=== PATIENT | female | born 2000 | race Caucasian/White ===

== ENCOUNTER 2021-06-02 00:13 | Inpatient (IN) | payer OTHER, SELFPAY ==
[2021-06-02] VITALS (7 sets, daily range): BP systolic 92–130; BP diastolic 47–76; PULSE 55–120; RESP 11–18; TEMP 36.9–37.3; O2SAT 96–100; BMI 25.7
--- NOTE | 2021-06-02 | ECG_ITS ---
Test Reason : MED CLEARANCE Blood Pressure : / mmHG Vent. Rate : 054 BPM Atrial Rate : 054 BPM P-R Int : 210 ms QRS Dur : 084 ms QT Int : 406 ms P-R-T Axes : 008 070 044 degrees QTc Int : 385 ms Sinus bradycardia with sinus arrhythmia with 1st degree A-V block Otherwise normal ECG When compared with ECG of 02-JUN-2021 04:27, No significant change was found DC interval has increased Heart rate has decreased Referred By: Shy Nettles Electronically Signed By:ANAHI HAWKINS
--- NOTE | 2021-06-02 00:38 | ED_ITS ---
HPI - Overdose General Chief Complaint: Overdose <Olman Malhotra MD - Last Filed: 06/02/21 07:16> Stated Complaint: SUICIDE ATTEMPT, OD AND WRIST LAC <Olman Malhotra MD - Last Filed: 06/02/21 07:16> Time Seen by Provider: 06/02/21 00:25 <Olman Malhotra MD - Last Filed: 06/02/21 07:16> Source: patient and EMS <Olman Malhotra MD - Last Filed: 06/02/21 07:16> Mode of arrival: EMS <Olman Malhotra MD - Last Filed: 06/02/21 07:16> Limitations: no limitations <Olman Malhotra MD - Last Filed: 06/02/21 07:16> History of Present Illness HPI Narrative: 20-year-old female who was brought to emergency department for intentional overdose of Seroquel. The information came from the ED nurse who obtained the following information. The patient's mother recently moved out and is living with a boyfriend. The patient has been living alone and she has found it very difficult. She states that she has been struggling with depression is had ther apy in the past that has not helped. The patient was witnessed taking approximately 20 pills of Seroquel 25 mg each. The person who witness this overdose made the patient vomit but did not notice any pill fragments. The overdose occurred [facility] The patient did drink alcohol this evening. She states she drank vodka but does not know how much she drank. She denied taking any illicit drugs. The patient told me that she does not cut herself and is not a cutter but she had a very stressful day today and she took a razor blade and made multiple superficial lacerations to her left forearm (15 in total). <Olman Malhotra MD - Last Filed: 06/02/21 07:16> Related Data Home Medications: Home Medications Medication Instructions Recorded Confirmed No Known Home Meds 06/02/21 06/02/21 <Olman Malhotra MD - Last Filed: 06/02/21 07:16> Allergies/Adverse Reactions: Allergies Allergy/AdvReac Type Severity Reaction Status Date / Time Penicillins [PCN] Allergy Unknown Verified 06/02/21 00:23 <Olman Malhotra MD - Last Filed: 06/02/21 07:16> Review of Systems Review of Systems: Yes all other systems are reviewed and are negative <Olman Malhotra MD - Last Filed: 06/02/21 07:16> [facility] Past Medical History [facility] Narrative: Past medical history: Anemia. Past surgical history: None. Social history: The patient occasionally smokes cigarettes. The patient occasionally drinks alcohol, she did drink vodka this evening. The patient denies drug use. <Olman Malhotra MD - Last Filed: 06/02/21 07:16> Social History Social History: Social History Alcohol intake: current Patient Tobacco Use Status: Never used Tobacco Use of substances other than those prescribed or required for medical reasons: No Advance Directives: No Advance Directives Information Provided: No <Olman Malhotra MD - Last Filed: 06/02/21 07:16> Physical Exam Vital Signs: Vital Signs: Last Vital Signs Temp 98.0 F 06/03/21 07:42 Pulse 63 06/03/21 07:42 Resp 15 06/03/21 07:42 BP 106/65 06/03/21 07:42 Pulse Ox 99 06/03/21 07:42 Body Mass Index 25.7 <Olman Malhotra MD - Last Filed: 06/02/21 07:16> Vital Signs: Last Vital Signs Temp 98.0 F 06/03/21 07:42 Pulse 63 06/03/21 07:42 Resp 15 06/03/21 07:42 BP 106/65 06/03/21 07:42 Pulse Ox 99 06/03/21 07:42 Body Mass Index 25.7 <ELENA Ovalles - Last Filed: 06/03/21 08:32> Const: Other: Sad appearing female patient, answers questions appropriately but in a very soft voice, does not appear to be in any distress. <Olman Malhotra MD - Last Filed: 06/02/21 07:16> HENMT: Head: Yes normal to inspection, Yes normocephalic and Yes atraumatic <MD Edenilson Menezes Last Filed: 06/02/21 07:16> Ears: external ears normal <MD Edenilson Menezes Last Filed: 06/02/21 07:16> General nose exam: Normal external nose present <MD Edenilson Menezes Last Filed: 06/02/21 07:16> Face and sinus: Yes normal facial exam <MD Edenilson Menezes Last Filed: 06/02/21 07:16> Mouth: Normal oral and palatal mucosa present <MD Edenilson Menezes Last Filed: 06/02/21 07:16> Throat: Yes posterior oropharynx normal <MD Edenilson Menezes Last Filed: 06/02/21 07:16> Eyes: General: appearance normal, both eyes and all related structures <MD Edenilson Menezes Last Filed: 06/02/21 07:16> Pupils: Equal, round and reactive pupils present <MD Edenilson Menezes Last Filed: 06/02/21 07:16> Neck: Neck: Yes normal visual inspection, Yes no lymphadenopathy, Yes trachea midline and Yes supple <MD Edenilson Menezes Last Filed: 06/02/21 07:16> Chest: Chest palpation & inspection: normal inspection of the chest and normal palpation of entire chest wall <MD Edenilson Menezes Last Filed: 06/02/21 07:16> Resp: Effort & Inspection: normal respiratory effort and able to speak in complete sentences <MD Edenilson Menezes Last Filed: 06/02/21 07:16> Auscultation: clear to auscultation bilaterally <MD Edenilson Menezes Last Filed: 06/02/21 07:16> Cardio: Rate: regular rate <MD Edenilson Menezes Last Filed: 06/02/21 07:16> Rhythm: regular rhythm <MD Edenilson Menezes Last Filed: 06/02/21 07:16> Heart sounds: S1 normal heart sound present, S2 normal heart sound present and no murmurs <MD Edenilson Menezes Last Filed: 06/02/21 07:16> GI: Inspection: Yes normal to inspection <Olman Malhotra MD - Last Filed: 06/02/21 07:16> Palpation (GI): Soft to palpation, nontender and no guarding <Olman Malhotra MD - Last Filed: 06/02/21 07:16> Auscultation: normal bowel sounds <Olman Malhotra MD - Last Filed: 06/02/21 07:16> : General: Yes no CVA tenderness <Olman Malhotra MD - Last Filed: 06/02/21 07:16> Back/Spine/Pelvis: Back: no CVA tenderness <Olman Malhotra MD - Last Filed: 06/02/21 07:16> Skin: General skin exam: no rashes or lesions noted <Olman Malhotra MD - Last Filed: 06/02/21 07:16> Neuro: Cranial nerves: Yes CN's II-XII intact bilaterally and Yes Equal, round and reactive pupils present <Olman Malhotra MD - Last Filed: 06/02/21 07:16> Cognition (Neuro): normal cognition <Olman Malhotra MD - Last Filed: 06/02/21 07:16> Motor exam (neuro): 5/5 motor strength present throughout <Olman Malhotra MD - Last Filed: 06/02/21 07:16> Extrem: General: Yes normal to inspection <Olman Malhotra MD - Last Filed: 06/02/21 07:16> Psych: Appearance: grossly normal <Olman Malhotra MD - Last Filed: 06/02/21 07:16> Speech and movement: Normal speech and movement present <Olman Malhotra MD - Last Filed: 06/02/21 07:16> Affect: Sad affect present <Olman Malhotra MD - Last Filed: 06/02/21 07:16> Attitude: cooperative <Olman Malhotra MD - Last Filed: 06/02/21 07:16> Course Course Course Narrative: 20-year-old female who presents emergency department for evaluation of intentional overdose of Seroquel 25 mg tablets, estimated 20 pills 1 hour prior to coming to emergency department. The patient took these in front of a friend who then forced her to vomit but there was no pill fragments. Patient also used a razor and made 15 superficial lacerations to her left forearm. Vital signs were stable. Physical examination was unremarkable except for the superficial lacerations on her left forearm which do not require suture repair. The lacerations were cleaned by nursing staff and bacitracin and a sterile dressing was applied to the wound. The patient was placed on a otr company driver. Labo ratory evaluation and EKG will be obtained. The patient will need to be monitored for at least 6 hours and observed for cardiac arrhythmias, hypotension, seizure activity. 0713: The patient's laboratory evaluation was unremarkable except for low elevated lactate of 3.0. She was treated with normal saline IV x3. Repeat lactic acid did improve. The patient's repeat EKG 4 hours after the 1st EKG revealed no prolongation of her QTC interval. The patient was kept on a cardiac and O2 saturation monitor for 6 hours. She had no arrhythmias or episodes apnea. Patient's blood pressure was low overnight while she was sleeping however I think that this was probably normal for her not caused by Seroquel. The patient is medically cleared and she will be transferred to the psychiatric pod. The patient will need crisis evaluation to determine if she needs to be admitted or if she can be discharged home. Patient will be placed in physician observation. 0713: Physician observation started at 0713. Patient placed in physician observation because the patient needed more time to be evaluated for the need for psych admission. At the time observation was started the patient's vitals were stable, patient is alert and oriented, Neuro: nonfocal, CV RRR, Lungs clear. <Olman Malhotra MD - Last Filed: 06/02/21 07:16> Reevaluation(s) Reevaluation #1: Physician observation continue. Patient vital signs are stable. Patient is not in any distress. Patient's Section 12 and is a bed search. <ELENA Ovalles - Last Filed: 06/03/21 08:32> Time: 08:31 <ELENA Ovalles - Last Filed: 06/03/21 08:32> MDM - Overdose Lab Data Result diagrams: : 06/02/21 00:34 06/02/21 00:34 <Olman Malhotra MD - Last Filed: 06/02/21 07:16> Labs: Lab Results 06/02/21 06/02/21 06/02/21 Range/Units 00:29 00:34 00:34 WBC 6.6 (4.8-10.8) X10*3/uL RBC 4.76 (4.20-5.50) X10*6/uL Hgb 11.5 L (12.0-16.0) g/dl Hct 36.4 L (37-47) % MCV 76.5 L (80-98) fL MCH 24.2 L (27.0-33.0) pg MCHC 31.6 (31.0-35.0) g/dl RDW 16.7 H (11.0-16.0) % Plt Count 168 (160-400) X10*3/uL MPV Not Reportable Immature Gran % (Auto) 0.3 (0.0-0.4) % Neut % (Auto) 60.5 (45-73) % Lymph % (Auto) 30.0 (20-40) % [place] % (Auto) 5.5 (2-11) % Eos % (Auto) 3.2 (0-4) % Baso % (Auto) 0.5 (0-2) % Lymph # (Auto) 2.0 (1.2-4.9) X10*3/uL [place] # (Auto) 0.4 (0.1-1.2) X10*3/uL Eos # (Auto) 0.2 (0.0-0.4) X10*3/uL Baso # (Auto) 0.0 (0.0-0.2) X10*3/uL Abs Immat Gran (auto) 0.02 (0.00-0.03) X10*3/uL Absolute Neuts (auto) 4.0 (2.0-8.3) X10*3/uL Absolute Nucleated RBC 0.000 (0.0-0.012) X10*3/uL Nucleated RBC % (auto) 0.0 (0.0-0.2) /100WBC Smear Tech's Comments VERIFIED PT 12.3 (9.9-13.0) SEC INR 1.1 (0.9-1.1) Sodium (135-145) mmol/L Potassium (3.3-5.1) mmol/L Chloride (96-108) mmol/L Carbon Dioxide (22-29) mmol/L Anion Gap (12-20) BUN (9-16) mg/dL Creatinine (0.5-1.4) mg/dL Estim Creat Clear Calc Estimated GFR Random Glucose (60-115) mg/dL Lactic Acid (0.5-2.0) mmol/L Lactic Acid Fup @ 2Hr (0.5-2.0) mmol/L Calcium (8.4-10.2) mg/dL Magnesium (1.6-2.6) mg/dL Total Bilirubin (0.0-1.0) mg/dL AST (5-31) U/L ALT (0-31) U/L Alkaline Phosphatase (39-117) U/L Total Protein (6.5-8.0) g/dL Albumin (3.5-5.0) g/dL Urine Color Urine Appearance Urine pH (5.0-8.0) Ur Specific [place] (1.005-1.025) Urine Protein (NEG-TRACE) MG/DL Urine Glucose (UA) (NEG) MG/DL Urine Ketones (NEG) MG/DL Urine Blood (NEG) Urine Nitrite (NEG) Ur Leukocyte Esterase (NEG) Salicylates (15-30) mg/dL Urine Opiates Screen (Not Detect) Urine Fentanyl Screen (Not Detect) Acetaminophen (<30) mcg/mL Ur Barbiturates Screen (Not Detect) Ur Phencyclidine Scrn (Not Detect) Ur Amphetamines Screen (Not Detect) U Benzodiazepines Scrn (Not Detect) Urine Cocaine Screen (Not Detect) U Marijuana (THC) Screen (Not Detect) Ethyl Alcohol mg/dL COVID-19 (BABAR) Negative (Negative) COVID-19 Clin Com See Note 06/02/21 06/02/21 06/02/21 Range/Units 00:34 00:34 00:34 WBC (4.8-10.8) X10*3/uL RBC (4.20-5.50) X10*6/uL Hgb (12.0-16.0) g/dl Hct (37-47) % MCV (80-98) fL MCH (27.0-33.0) pg MCHC (31.0-35.0) g/dl RDW (11.0-16.0) % Plt Count (160-400) X10*3/uL MPV Immature Gran % (Auto) (0.0-0.4) % Neut % (Auto) (45-73) % Lymph % (Auto) (20-40) % [place] % (Auto) (2-11) % Eos % (Auto) (0-4) % Baso % (Auto) (0-2) % Lymph # (Auto) (1.2-4.9) X10*3/uL [place] # (Auto) (0.1-1.2) X10*3/uL Eos # (Auto) (0.0-0.4) X10*3/uL Baso # (Auto) (0.0-0.2) X10*3/uL Abs Immat Gran (auto) (0.00-0.03) X10*3/uL Absolute Neuts (auto) (2.0-8.3) X10*3/uL Absolute Nucleated RBC (0.0-0.012) X10*3/uL Nucleated RBC % (auto) (0.0-0.2) /100WBC Smear Tech's Comments PT (9.9-13.0) SEC INR (0.9-1.1) Sodium 141 (135-145) mmol/L Potassium 3.3 (3.3-5.1) mmol/L Chloride 106 (96-108) mmol/L Carbon Dioxide 20 L (22-29) mmol/L Anion Gap 18 (12-20) BUN 7 L (9-16) mg/dL Creatinine 0.76 (0.5-1.4) mg/dL Estim Creat Clear Calc 116.0 Estimated GFR > 60 Random Glucose 70 (60-115) mg/dL Lactic Acid 3.0 H* (0.5-2.0) mmol/L Lactic Acid Fup @ 2Hr (0.5-2.0) mmol/L Calcium 9.0 (8.4-10.2) mg/dL Magnesium 2.0 (1.6-2.6) mg/dL Total Bilirubin 0.3 (0.0-1.0) mg/dL AST 15 (5-31) U/L ALT 11 (0-31) U/L Alkaline Phosphatase 45 (39-117) U/L Total Protein 6.8 (6.5-8.0) g/dL Albumin 4.1 (3.5-5.0) g/dL Urine Color Urine Appearance Urine pH (5.0-8.0) Ur Specific [place] (1.005-1.025) Urine Protein (NEG-TRACE) MG/DL Urine Glucose (UA) (NEG) MG/DL Urine Ketones (NEG) MG/DL Urine Blood (NEG) Urine Nitrite (NEG) Ur Leukocyte Esterase (NEG) Salicylates (15-30) mg/dL Urine Opiates Screen (Not Detect) Urine Fentanyl Screen (Not Detect) Acetaminophen < 1 (<30) mcg/mL Ur Barbiturates Screen (Not Detect) Ur Phencyclidine Scrn (Not Detect) Ur Amphetamines Screen (Not Detect) U Benzodiazepines Scrn (Not Detect) Urine Cocaine Screen (Not Detect) U Marijuana (THC) Screen (Not Detect) Ethyl Alcohol 33 mg/dL COVID-19 (BABAR) (Negative) COVID-19 Clin Com 06/02/21 06/02/21 06/02/21 Range/Units 01:21 01:21 02:21 WBC (4.8-10.8) X10*3/uL RBC (4.20-5.50) X10*6/uL Hgb (12.0-16.0) g/dl Hct (37-47) % MCV (80-98) fL MCH (27.0-33.0) pg MCHC (31.0-35.0) g/dl RDW (11.0-16.0) % Plt Count (160-400) X10*3/uL MPV Immature Gran % (Auto) (0.0-0.4) % Neut % (Auto) (45-73) % Lymph % (Auto) (20-40) % [place] % (Auto) (2-11) % Eos % (Auto) (0-4) % Baso % (Auto) (0-2) % Lymph # (Auto) (1.2-4.9) X10*3/uL [place] # (Auto) (0.1-1.2) X10*3/uL Eos # (Auto) (0.0-0.4) X10*3/uL Baso # (Auto) (0.0-0.2) X10*3/uL Abs Immat Gran (auto) (0.00-0.03) X10*3/uL Absolute Neuts (auto) (2.0-8.3) X10*3/uL Absolute Nucleated RBC (0.0-0.012) X10*3/uL Nucleated RBC % (auto) (0.0-0.2) /100WBC Smear Tech's Comments PT (9.9-13.0) SEC INR (0.9-1.1) Sodium (135-145) mmol/L Potassium (3.3-5.1) mmol/L Chloride (96-108) mmol/L Carbon Dioxide (22-29) mmol/L Anion Gap (12-20) BUN (9-16) mg/dL Creatinine (0.5-1.4) mg/dL Estim Creat Clear Calc Estimated GFR Random Glucose (60-115) mg/dL Lactic Acid 2.3 H* (0.5-2.0) mmol/L Lactic Acid Fup @ 2Hr (0.5-2.0) mmol/L Calcium (8.4-10.2) mg/dL Magnesium (1.6-2.6) mg/dL Total Bilirubin (0.0-1.0) mg/dL AST (5-31) U/L ALT (0-31) U/L Alkaline Phosphatase (39-117) U/L Total Protein (6.5-8.0) g/dL Albumin (3.5-5.0) g/dL Urine Color YELLOW Urine Appearance CLEAR Urine pH 6.0 (5.0-8.0) Ur Specific [place] <= 1.005 (1.005-1.025) Urine Protein NEG (NEG-TRACE) MG/DL Urine Glucose (UA) NEG (NEG) MG/DL Urine Ketones 15 (NEG) MG/DL Urine Blood NEG (NEG) Urine Nitrite NEG (NEG) Ur Leukocyte Esterase NEG (NEG) Salicylates (15-30) mg/dL Urine Opiates Screen Not Detected (Not Detect) Urine Fentanyl Screen Not Detected (Not Detect) Acetaminophen (<30) mcg/mL Ur Barbiturates Screen Not Detected (Not Detect) Ur Phencyclidine Scrn Not Detected (Not Detect) Ur Amphetamines Screen Not Detected (Not Detect) U Benzodiazepines Scrn Not Detected (Not Detect) Urine Cocaine Screen Not Detected (Not Detect) U Marijuana (THC) Screen Not Detected (Not Detect) Ethyl Alcohol mg/dL COVID-19 (BABAR) (Negative) COVID-19 Clin Com 06/02/21 06/02/21 Range/Units 04:40 09:17 WBC (4.8-10.8) X10*3/uL RBC (4.20-5.50) X10*6/uL Hgb (12.0-16.0) g/dl Hct (37-47) % MCV (80-98) fL MCH (27.0-33.0) pg MCHC (31.0-35.0) g/dl RDW (11.0-16.0) % Plt Count (160-400) X10*3/uL MPV Immature Gran % (Auto) (0.0-0.4) % Neut % (Auto) (45-73) % Lymph % (Auto) (20-40) % [place] % (Auto) (2-11) % Eos % (Auto) (0-4) % Baso % (Auto) (0-2) % Lymph # (Auto) (1.2-4.9) X10*3/uL [place] # (Auto) (0.1-1.2) X10*3/uL Eos # (Auto) (0.0-0.4) X10*3/uL Baso # (Auto) (0.0-0.2) X10*3/uL Abs Immat Gran (auto) (0.00-0.03) X10*3/uL Absolute Neuts (auto) (2.0-8.3) X10*3/uL Absolute Nucleated RBC (0.0-0.012) X10*3/uL Nucleated RBC % (auto) (0.0-0.2) /100WBC Smear Tech's Comments PT (9.9-13.0) SEC INR (0.9-1.1) Sodium (135-145) mmol/L Potassium (3.3-5.1) mmol/L Chloride (96-108) mmol/L Carbon Dioxide (22-29) mmol/L Anion Gap (12-20) BUN (9-16) mg/dL Creatinine (0.5-1.4) mg/dL Estim Creat Clear Calc Estimated GFR Random Glucose (60-115) mg/dL Lactic Acid (0.5-2.0) mmol/L Lactic Acid Fup @ 2Hr 0.5 (0.5-2.0) mmol/L Calcium (8.4-10.2) mg/dL Magnesium 2.0 (1.6-2.6) mg/dL Total Bilirubin (0.0-1.0) mg/dL AST (5-31) U/L ALT (0-31) U/L Alkaline Phosphatase (39-117) U/L Total Protein (6.5-8.0) g/dL Albumin (3.5-5.0) g/dL Urine Color Urine Appearance Urine pH (5.0-8.0) Ur Specific [place] (1.005-1.025) Urine Protein (NEG-TRACE) MG/DL Urine Glucose (UA) (NEG) MG/DL Urine Ketones (NEG) MG/DL Urine Blood (NEG) Urine Nitrite (NEG) Ur Leukocyte Esterase (NEG) Salicylates < 5.0 L (15-30) mg/dL Urine Opiates Screen (Not Detect) Urine Fentanyl Screen (Not Detect) Acetaminophen (<30) mcg/mL Ur Barbiturates Screen (Not Detect) Ur Phencyclidine Scrn (Not Detect) Ur Amphetamines Screen (Not Detect) U Benzodiazepines Scrn (Not Detect) Urine Cocaine Screen (Not Detect) U Marijuana (THC) Screen (Not Detect) Ethyl Alcohol mg/dL COVID-19 (BABAR) (Negative) COVID-19 Clin Com <Olman Malhotra MD - Last Filed: 06/02/21 07:16> Lab Results 06/02/21 06/02/21 06/02/21 Range/Units 00:29 00:34 00:34 WBC 6.6 (4.8-10.8) X10*3/uL RBC 4.76 (4.20-5.50) X10*6/uL Hgb 11.5 L (12.0-16.0) g/dl Hct 36.4 L (37-47) % MCV 76.5 L (80-98) fL MCH 24.2 L (27.0-33.0) pg MCHC 31.6 (31.0-35.0) g/dl RDW 16.7 H (11.0-16.0) % Plt Count 168 (160-400) X10*3/uL MPV Not Reportable Immature Gran % (Auto) 0.3 (0.0-0.4) % Neut % (Auto) 60.5 (45-73) % Lymph % (Auto) 30.0 (20-40) % [place] % (Auto) 5.5 (2-11) % Eos % (Auto) 3.2 (0-4) % Baso % (Auto) 0.5 (0-2) % Lymph # (Auto) 2.0 (1.2-4.9) X10*3/uL [place] # (Auto) 0.4 (0.1-1.2) X10*3/uL Eos # (Auto) 0.2 (0.0-0.4) X10*3/uL Baso # (Auto) 0.0 (0.0-0.2) X10*3/uL Abs Immat Gran (auto) 0.02 (0.00-0.03) X10*3/uL Absolute Neuts (auto) 4.0 (2.0-8.3) X10*3/uL Absolute Nucleated RBC 0.000 (0.0-0.012) X10*3/uL Nucleated RBC % (auto) 0.0 (0.0-0.2) /100WBC Smear Tech's Comments VERIFIED PT 12.3 (9.9-13.0) SEC INR 1.1 (0.9-1.1) Sodium (135-145) mmol/L Potassium (3.3-5.1) mmol/L Chloride (96-108) mmol/L Carbon Dioxide (22-29) mmol/L Anion Gap (12-20) BUN (9-16) mg/dL Creatinine (0.5-1.4) mg/dL Estim Creat Clear Calc Estimated GFR Random Glucose (60-115) mg/dL Lactic Acid (0.5-2.0) mmol/L Lactic Acid Fup @ 2Hr (0.5-2.0) mmol/L Calcium (8.4-10.2) mg/dL Magnesium (1.6-2.6) mg/dL Total Bilirubin (0.0-1.0) mg/dL AST (5-31) U/L ALT (0-31) U/L Alkaline Phosphatase (39-117) U/L Total Protein (6.5-8.0) g/dL Albumin (3.5-5.0) g/dL Urine Color Urine Appearance Urine pH (5.0-8.0) Ur Specific [place] (1.005-1.025) Urine Protein (NEG-TRACE) MG/DL Urine Glucose (UA) (NEG) MG/DL Urine Ketones (NEG) MG/DL Urine Blood (NEG) Urine Nitrite (NEG) Ur Leukocyte Esterase (NEG) Salicylates (15-30) mg/dL Urine Opiates Screen (Not Detect) Urine Fentanyl Screen (Not Detect) Acetaminophen (<30) mcg/mL Ur Barbiturates Screen (Not Detect) Ur Phencyclidine Scrn (Not Detect) Ur Amphetamines Screen (Not Detect) U Benzodiazepines Scrn (Not Detect) Urine Cocaine Screen (Not Detect) U Marijuana (THC) Screen (Not Detect) Ethyl Alcohol mg/dL COVID-19 (BABAR) Negative (Negative) COVID-19 Clin Com See Note 06/02/21 06/02/21 06/02/21 Range/Units 00:34 00:34 00:34 WBC (4.8-10.8) X10*3/uL RBC (4.20-5.50) X10*6/uL Hgb (12.0-16.0) g/dl Hct (37-47) % MCV (80-98) fL MCH (27.0-33.0) pg MCHC (31.0-35.0) g/dl RDW (11.0-16.0) % Plt Count (160-400) X10*3/uL MPV Immature Gran % (Auto) (0.0-0.4) % Neut % (Auto) (45-73) % Lymph % (Auto) (20-40) % [place] % (Auto) (2-11) % Eos % (Auto) (0-4) % Baso % (Auto) (0-2) % Lymph # (Auto) (1.2-4.9) X10*3/uL [place] # (Auto) (0.1-1.2) X10*3/uL Eos # (Auto) (0.0-0.4) X10*3/uL Baso # (Auto) (0.0-0.2) X10*3/uL Abs Immat Gran (auto) (0.00-0.03) X10*3/uL Absolute Neuts (auto) (2.0-8.3) X10*3/uL Absolute Nucleated RBC (0.0-0.012) X10*3/uL Nucleated RBC % (auto) (0.0-0.2) /100WBC Smear Tech's Comments PT (9.9-13.0) SEC INR (0.9-1.1) Sodium 141 (135-145) mmol/L Potassium 3.3 (3.3-5.1) mmol/L Chloride 106 (96-108) mmol/L Carbon Dioxide 20 L (22-29) mmol/L Anion Gap 18 (12-20) BUN 7 L (9-16) mg/dL Creatinine 0.76 (0.5-1.4) mg/dL Estim Creat Clear Calc 116.0 Estimated GFR > 60 Random Glucose 70 (60-115) mg/dL Lactic Acid 3.0 H* (0.5-2.0) mmol/L Lactic Acid Fup @ 2Hr (0.5-2.0) mmol/L Calcium 9.0 (8.4-10.2) mg/dL Magnesium 2.0 (1.6-2.6) mg/dL Total Bilirubin 0.3 (0.0-1.0) mg/dL AST 15 (5-31) U/L ALT 11 (0-31) U/L Alkaline Phosphatase 45 (39-117) U/L Total Protein 6.8 (6.5-8.0) g/dL Albumin 4.1 (3.5-5.0) g/dL Urine Color Urine Appearance Urine pH (5.0-8.0) Ur Specific [place] (1.005-1.025) Urine Protein (NEG-TRACE) MG/DL Urine Glucose (UA) (NEG) MG/DL Urine Ketones (NEG) MG/DL Urine Blood (NEG) Urine Nitrite (NEG) Ur Leukocyte Esterase (NEG) Salicylates (15-30) mg/dL Urine Opiates Screen (Not Detect) Urine Fentanyl Screen (Not Detect) Acetaminophen < 1 (<30) mcg/mL Ur Barbiturates Screen (Not Detect) Ur Phencyclidine Scrn (Not Detect) Ur Amphetamines Screen (Not Detect) U Benzodiazepines Scrn (Not Detect) Urine Cocaine Screen (Not Detect) U Marijuana (THC) Screen (Not Detect) Ethyl Alcohol 33 mg/dL COVID-19 (BABAR) (Negative) COVID-19 Clin Com 06/02/21 06/02/21 06/02/21 Range/Units 01:21 01:21 02:21 WBC (4.8-10.8) X10*3/uL RBC (4.20-5.50) X10*6/uL Hgb (12.0-16.0) g/dl Hct (37-47) % MCV (80-98) fL MCH (27.0-33.0) pg MCHC (31.0-35.0) g/dl RDW (11.0-16.0) % Plt Count (160-400) X10*3/uL MPV Immature Gran % (Auto) (0.0-0.4) % Neut % (Auto) (45-73) % Lymph % (Auto) (20-40) % [place] % (Auto) (2-11) % Eos % (Auto) (0-4) % Baso % (Auto) (0-2) % Lymph # (Auto) (1.2-4.9) X10*3/uL [place] # (Auto) (0.1-1.2) X10*3/uL Eos # (Auto) (0.0-0.4) X10*3/uL Baso # (Auto) (0.0-0.2) X10*3/uL Abs Immat Gran (auto) (0.00-0.03) X10*3/uL Absolute Neuts (auto) (2.0-8.3) X10*3/uL Absolute Nucleated RBC (0.0-0.012) X10*3/uL Nucleated RBC % (auto) (0.0-0.2) /100WBC Smear Tech's Comments PT (9.9-13.0) SEC INR (0.9-1.1) Sodium (135-145) mmol/L Potassium (3.3-5.1) mmol/L Chloride (96-108) mmol/L Carbon Dioxide (22-29) mmol/L Anion Gap (12-20) BUN (9-16) mg/dL Creatinine (0.5-1.4) mg/dL Estim Creat Clear Calc Estimated GFR Random Glucose (60-115) mg/dL Lactic Acid 2.3 H* (0.5-2.0) mmol/L Lactic Acid Fup @ 2Hr (0.5-2.0) mmol/L Calcium (8.4-10.2) mg/dL Magnesium (1.6-2.6) mg/dL Total Bilirubin (0.0-1.0) mg/dL AST (5-31) U/L ALT (0-31) U/L Alkaline Phosphatase (39-117) U/L Total Protein (6.5-8.0) g/dL Albumin (3.5-5.0) g/dL Urine Color YELLOW Urine Appearance CLEAR Urine pH 6.0 (5.0-8.0) Ur Specific [place] <= 1.005 (1.005-1.025) Urine Protein NEG (NEG-TRACE) MG/DL Urine Glucose (UA) NEG (NEG) MG/DL Urine Ketones 15 (NEG) MG/DL Urine Blood NEG (NEG) Urine Nitrite NEG (NEG) Ur Leukocyte Esterase NEG (NEG) Salicylates (15-30) mg/dL Urine Opiates Screen Not Detected (Not Detect) Urine Fentanyl Screen Not Detected (Not Detect) Acetaminophen (<30) mcg/mL Ur Barbiturates Screen Not Detected (Not Detect) Ur Phencyclidine Scrn Not Detected (Not Detect) Ur Amphetamines Screen Not Detected (Not Detect) U Benzodiazepines Scrn Not Detected (Not Detect) Urine Cocaine Screen Not Detected (Not Detect) U Marijuana (THC) Screen Not Detected (Not Detect) Ethyl Alcohol mg/dL COVID-19 (BABAR) (Negative) COVID-19 Clin Com 06/02/21 06/02/21 Range/Units 04:40 09:17 WBC (4.8-10.8) X10*3/uL RBC (4.20-5.50) X10*6/uL Hgb (12.0-16.0) g/dl Hct (37-47) % MCV (80-98) fL MCH (27.0-33.0) pg MCHC (31.0-35.0) g/dl RDW (11.0-16.0) % Plt Count (160-400) X10*3/uL MPV Immature Gran % (Auto) (0.0-0.4) % Neut % (Auto) (45-73) % Lymph % (Auto) (20-40) % [place] % (Auto) (2-11) % Eos % (Auto) (0-4) % Baso % (Auto) (0-2) % Lymph # (Auto) (1.2-4.9) X10*3/uL [place] # (Auto) (0.1-1.2) X10*3/uL Eos # (Auto) (0.0-0.4) X10*3/uL Baso # (Auto) (0.0-0.2) X10*3/uL Abs Immat Gran (auto) (0.00-0.03) X10*3/uL Absolute Neuts (auto) (2.0-8.3) X10*3/uL Absolute Nucleated RBC (0.0-0.012) X10*3/uL Nucleated RBC % (auto) (0.0-0.2) /100WBC Smear Tech's Comments PT (9.9-13.0) SEC INR (0.9-1.1) Sodium (135-145) mmol/L Potassium (3.3-5.1) mmol/L Chloride (96-108) mmol/L Carbon Dioxide (22-29) mmol/L Anion Gap (12-20) BUN (9-16) mg/dL Creatinine (0.5-1.4) mg/dL Estim Creat Clear Calc Estimated GFR Random Glucose (60-115) mg/dL Lactic Acid (0.5-2.0) mmol/L Lactic Acid Fup @ 2Hr 0.5 (0.5-2.0) mmol/L Calcium (8.4-10.2) mg/dL Magnesium 2.0 (1.6-2.6) mg/dL Total Bilirubin (0.0-1.0) mg/dL AST (5-31) U/L ALT (0-31) U/L Alkaline Phosphatase (39-117) U/L Total Protein (6.5-8.0) g/dL Albumin (3.5-5.0) g/dL Urine Color Urine Appearance Urine pH (5.0-8.0) Ur Specific [place] (1.005-1.025) Urine Protein (NEG-TRACE) MG/DL Urine Glucose (UA) (NEG) MG/DL Urine Ketones (NEG) MG/DL Urine Blood (NEG) Urine Nitrite (NEG) Ur Leukocyte Esterase (NEG) Salicylates < 5.0 L (15-30) mg/dL Urine Opiates Screen (Not Detect) Urine Fentanyl Screen (Not Detect) Acetaminophen (<30) mcg/mL Ur Barbiturates Screen (Not Detect) Ur Phencyclidine Scrn (Not Detect) Ur Amphetamines Screen (Not Detect) U Benzodiazepines Scrn (Not Detect) Urine Cocaine Screen (Not Detect) U Marijuana (THC) Screen (Not Detect) Ethyl Alcohol mg/dL COVID-19 (BABAR) (Negative) COVID-19 Clin Com <ELENA Ovalles - Last Filed: 06/03/21 08:32> ECG Data Attestation: I personally reviewed and interpreted this ECG as follows: <Olman Malhotra MD - Last Filed: 06/02/21 07:16> Interpretation: 0019: Normal sinus rhythm with a rate of 85, normal RI interval, normal QRS duration, normal QTC interval, no ST segment elevation, no ST segment depression, no PACs, no PVCs, no T-wave abnormalities. 0427: Normal sinus rhythm with a rate of 62, normal RI interval, QRS duration and QTC interval, inverted T-wave in V1, no ST segment elevation, no ST segment depression, no PACs, no PVCs, compared to the EKG done at 09/15/1999, there is no significant change <Olman Malhotra MD - Last Filed: 06/02/21 07:16> Discharge Plan Discharge Clinical Impression: Suicide attempt by multiple drug overdose <Olman Malhotra MD - Last Filed: 06/02/21 07:16> Prescriptions: No Action No Known Home Meds RF: 0 <Olman Malhotra MD - Last Filed: 06/02/21 07:16>
[2021-06-02] MEDS: 0.9 % Sodium Chloride 1,000 ML 999 ML IV ×3 (00:40→02:23)
[2021-06-02 00:45] LABS: Imm Gran Abs Auto 0.02 X10*3/uL (0.00-0.03); Imm Gran Pct Auto 0.3 % (0.0-0.4); MANUAL DIFF FLAG SCAN; Red Cell Distribution Width 16.7 % (11.0-16.0); SCAN SMEAR FLAG 1
[2021-06-02 00:46] LABS: Basophils Percent Auto 0.5 % (0-2); Eosinophils Absolute Auto 0.2 X10*3/uL (0.0-0.4); Eosinophils Percent Auto 3.2 % (0-4); Hematocrit 36.4 % (37-47); Hemoglobin 11.5 g/dl (12.0-16.0); Mean Corpuscular HGB Conc 31.6 g/dl (31.0-35.0); Mean Corpuscular Hemoglobin 24.2 pg (27.0-33.0); Mean Corpuscular Volume 76.5 fL (80-98); Monocytes Absolute Auto 0.4 X10*3/uL (0.1-1.2); Monocytes Percent Auto 5.5 % (2-11); Neutrophils Percent Auto 60.5 % (45-73); Platelet Count 168 X10*3/uL (160-400); Red Blood Count 4.76 X10*6/uL (4.20-5.50); White Blood Count 6.6 X10*3/uL (4.8-10.8)
[2021-06-02 00:56] LABS: Ethanol 33 mg/dL
[2021-06-02 00:59] LABS: Acetaminophen LAB < 1 mcg/mL (<30); Alanine Aminotransferase 11 U/L (0-31); Albumin Level 4.1 g/dL (3.5-5.0); Alkaline Phosphatase 45 U/L (39-117); Anion Gap 18 (12-20); Aspartate Amino Transferase 15 U/L (5-31); Bilirubin Total 0.3 mg/dL (0.0-1.0); Blood Urea Nitrogen 7 mg/dL (9-16); Carbon Dioxide 20 mmol/L (22-29); Chloride 106 mmol/L (96-108); Estimated Glomerular Filt Rate > 60; Glucose Random 70 mg/dL (60-115); Potassium 3.3 mmol/L (3.3-5.1); Sodium 141 mmol/L (135-145); Total Protein 6.8 g/dL (6.5-8.0)
[2021-06-02 01:04] LABS: PLT ABN DIST 1
--- NOTE | 2021-06-02 01:08 | PC.NURSE ---
This RN contacted poison control, was told by poison control that they will call this RN back as they are unable to speak at this time
[2021-06-02 01:09] LABS: SLIDE REVIEW VERIFIED
[2021-06-02 01:11] LABS: COVID-19 Test Negative (Negative); IDNOW Serial# 9DD0AD1C
--- NOTE | 2021-06-02 01:12 | PC.NURSE ---
This RN spoke with Opal at Poison Control who reports sx to look out for are sedation, hypotension, possible QT prolongation. Opal also states that seizures are possible, but not likely with this dose that pt took. Opal recs repeat EKG in 4-6h and repeat lactic q2h until WNL as per hospital protocol. Dr Malhotra made aware of recs, will plan to follow recs. 1:1 sitter at bedside, has remained at bedside since pt's arrival.
[2021-06-02 01:15] LABS: INTERNATIONAL NORM RATIO 1.1 (0.9-1.1); Prothrombin Time 12.3 SEC (9.9-13.0)
[2021-06-02 01:42] LABS: Amphetamine Screen Urine Not Detected (Not Detect); Barbiturates, Urine Not Detected (Not Detect); Benzodiazepines Screen Urine Not Detected (Not Detect); Cannabinoid Screen Urine Not Detected (Not Detect); Cocaine Screen Urine Not Detected (Not Detect); Fentanyl, urine Not Detected (Not Detect); Opiate Screen Urine Not Detected (Not Detect); Phencyclidine Screen Urine Not Detected (Not Detect)
[2021-06-02 01:47] LABS: Appearance Urine CLEAR; Color Urine YELLOW; Glucose Urine UA NEG (NEG); Leukocyte Esterase Urine NEG (NEG); Nitrite Urine NEG (NEG); Specific Gravity - Urine <= 1.005 (1.005-1.025); Urine Blood NEG (NEG); Urine Ketones 15 MG/DL (NEG); Urine Protein NEG (NEG-TRACE)
--- NOTE | 2021-06-02 02:13 | PC.NURSE ---
Pt's belongings secured in locker 11 by security
[2021-06-02 02:41] LABS: Reflex Lactate? Lactic Acid Added
[2021-06-02 03:04] LABS: Lactic Acid 2.3 mmol/L (0.5-2.0)
--- NOTE | 2021-06-02 03:10 | PC.NURSE ---
1 l lm hung per verbal order from
--- NOTE | 2021-06-02 03:52 | PC.NURSE ---
Per Dr Malhotra, do not do EKG until 0068
--- NOTE | 2021-06-02 04:00 | ECG_ITS ---
Test Reason : OD Blood Pressure : / mmHG Vent. Rate : 062 BPM Atrial Rate : 062 BPM P-R Int : 190 ms QRS Dur : 084 ms QT Int : 400 ms P-R-T Axes : 018 078 048 degrees QTc Int : 406 ms Normal sinus rhythm with sinus arrhythmia Normal ECG When compared with ECG of 02-JUN-2021 00:19, No significant change was found Referred By: Olman Malhotra Electronically Signed By:ANAHI HAWKINS
[2021-06-02 04:25] LABS: Reflex Lactate? Lactic Acid Added
[2021-06-02 04:57] LABS: ~Lactic Acid-LAB USE ONLY 0.5 mmol/L (0.5-2.0)
--- NOTE | 2021-06-02 06:46 | PC.NURSE ---
At about 0615 this RN contacted [facility] and left message for auto clutch specialist, left message but no call was returned. This RN called again at this time, doing intake with Debbie at [facility] at this time.
--- NOTE | 2021-06-02 06:50 | PC.NURSE ---
Per Debbie at [facility], first night shift supervisor at [facility] will arrive at 0700 and clinician's ETA will be available at that time.
--- NOTE | 2021-06-02 07:09 | PC.NURSE ---
Report given to OBED Martinez. Pt transferred to 03, ambulatory with steady gait
--- NOTE | 2021-06-02 08:49 | PC.NURSE ---
poison control called and asked questions re: repeat ekg, magnesium supplemetation and add on salicylates. sent message to provider.
--- NOTE | 2021-06-02 09:03 | ECG_ITS ---
Test Reason : OD Blood Pressure : / mmHG Vent. Rate : 085 BPM Atrial Rate : 085 BPM P-R Int : 142 ms QRS Dur : 084 ms QT Int : 352 ms P-R-T Axes : 015 076 050 degrees QTc Int : 418 ms Normal sinus rhythm Normal ECG No previous ECGs available Referred By: Shy Nettles Electronically Signed By:ANAHI HAWKINS
[2021-06-02 09:37] LABS: Salicylate < 5.0 mg/dL (15-30)
--- NOTE | 2021-06-02 11:09 | PC.NURSE ---
poison control called again and reviewed labs w this insurance underwriter. no recommendations.
--- NOTE | 2021-06-02 14:20 | PC.NURSE ---
tiffani requested these numbers be added to her chart for us. meggan (sister)[phone], shahida (mom) [phone]
--- NOTE | 2021-06-02 17:15 | PC.NURSE ---
mom Jessenia who conversed with this leader writer briefly before leaving today expresses that she would like to be kept updated on clients transition to inpatient unit if the client is agreeable. phone number in prvious note.
[2021-06-03 02:30] VITALS: BP 105/71; PULSE 87; RESP 16; TEMP 36.6; O2SAT 99
--- NOTE | 2021-06-03 07:01 | PC.NURSE ---
Patient slept through the night, no distress observed/reported, behavior appropriate, patient got assessed by BHN, disposition section 12 inpatient bed search, VSS, will continue to monitor.
[2021-06-03 07:42] VITALS: BP 106/65; PULSE 63; RESP 15; TEMP 36.7; O2SAT 99
--- NOTE | 2021-06-03 09:35 | PC.NURSE ---
PT'S BOYFRIEND VISITED.
--- NOTE | 2021-06-03 09:52 | PC.NURSE ---
PT IS EXPRESSING THE DESIRE TO LEAVE, STATING THAT SHE WOULD RATHER GO HOME AND FOLLOW UP WITH A THERAPIST. MABEL (CARE TEAM), PT'S BOYFRIEND AT BEDSIDE WITH THIS RN.
--- NOTE | 2021-06-03 10:08 | PC.NURSE ---
PT WASHED UP IN BATHROOM, ALL BED LINEN CHANGED AND ROOM SWEPT BY MHA.
[2021-06-03 16:38] VITALS: RESP 16
[2021-06-03 18:45] VITALS: BP 120/65; PULSE 83; RESP 16; TEMP 36.6; O2SAT 100
--- NOTE | 2021-06-03 18:51 | PC.ADMIT ---
PT admitted from [facility] ED on a conditional voluntary with the diagnosis of adjustment disorder following an overdose on seroquel. PT guarded in conversation, stated that she was triggered by a lot of things that made her think about her past and brought up past feelings. PT stated that she cut her self for the first time since she was 13 and took an old prescription. PT states that she wants to be discharged and that being here is a trigger. PT states that she was hospitalized as a child. Pt states that she has a lot of things going on in her life, declined to discuss further. Tox screen was negative, pt was covid negative. PT states she is not on any current medications and has no providers but is open to providers again.
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
[2021-06-04] MEDS: hydrOXYzine HCL 25 MG TABLET PO ×2 (01:47→22:13)
[2021-06-04 08:45] VITALS: BP 105/64; PULSE 58; RESP 18; TEMP 36.6; O2SAT 98
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
[2021-06-04 18:00] VITALS: BP 114/57; PULSE 69; TEMP 36.7; O2SAT 98
[2021-06-04] MEDS: traZODone HCL 50 MG TABLET PO (22:13)
[2021-06-05 09:00] VITALS: BP 105/56; PULSE 70; RESP 16; TEMP 36.7; O2SAT 97
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
[2021-06-05 18:00] VITALS: BP 107/60; PULSE 78; RESP 16; TEMP 36.7; O2SAT 98
[2021-06-05] MEDS: traZODone HCL 100 MG TABLET PO (20:38)
[2021-06-05] MEDS: hydrOXYzine HCL 25 MG TABLET PO (20:38)
[2021-06-06 06:00] VITALS: BP 114/67; PULSE 124; RESP 16; TEMP 36.9; O2SAT 99
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
== END 2021-06-06 11:53 | disposition home or self-care (01) | DRG 751 ==
LOC: HO.ED 06-03 11:40 → HO.PADLT16 06-03 17:29
PROVIDERS: Emergency Medicine Emergency Medical Services; Admitting Provider Psychiatry & Neurology Psychiatry; Emergency Provider Emergency Medicine Emergency Medical Services; Visit Provider Psychiatry & Neurology Psychiatry
DX: F33.1 Major depressive disorder, recurrent, moderate (principal); R45.851 Suicidal ideations; F43.10 Post-traumatic stress disorder, unspecified; F17.210 Nicotine dependence, cigarettes, uncomplicated; F41.1 Generalized anxiety disorder; Z20.822 Contact with and (suspected) exposure to COVID-19; Z88.0 Allergy status to penicillin; Z71.6 Tobacco abuse counseling; Z91.5 Personal history of self-harm; Z79.899 Other long term (current) drug therapy
CPT/HCPCS: 36415; 80053; 80143; 80179; 80307; 81003; 82077; 83605; 83735; 85025; 85610; 87040; 87635; 93005; 99285